=== PATIENT | female | born 1985 | race Caucasian/White ===

== ENCOUNTER 2016-10-12 12:07 | Day surgery (SDC) | payer OTHER ==
[2016-10-12] VITALS (16 sets, daily range): BP systolic 103–120; BP diastolic 55–66; PULSE 81–98; RESP 13–22; Ht 165.1 cm; Wt 75.6 kg
[~2016-10-12] VITALS: Ht 165.1 cm; Wt 75.6 kg
[2016-10-12 13:53] LABS: ADD UMIC YES; URINE BILIRUBIN (Dip) NEGATIVE (NEGATIVE); URINE BLOOD (Dip) 2+ (NEGATIVE); URINE COLOR LT. YELLOW (YELLOW); URINE GLUCOSE (Dip) NEGATIVE (NEGATIVE); URINE KETONES (Dip) NEGATIVE (NEGATIVE); URINE LEUKOCYTE ESTERASE (Dip) 2+ (NEGATIVE); URINE NITRITE (Dip) NEGATIVE (NEGATIVE); URINE TOTAL PROTEIN (Dip) NEGATIVE (NEGATIVE); URINE UROBILINOGEN (Dip) 0.2 E.U./dL (0.1-1.0)
[2016-10-12 13:53] LABS: BASOPHILS % 0.5 % (0.0-2.0); EOSINOPHILS # 0.1 10^3/ul (0.0-0.5); EOSINOPHILS % 1.2 % (0.0-7.0); HEMATOCRIT 40.7 % (37.0-47.0); HEMOGLOBIN 13.6 g/dl (12.0-16.0); LYMPHOCYTES # 2.1 10^3/ul (0.8-2.9); MEAN CORPUSCULAR HEMOGLOBIN 30.5 pg (29.0-33.0); MEAN CORPUSCULAR HGB CONC 33.4 g/dl (32.0-37.0); MEAN CORPUSCULAR VOLUME 91.4 fl (82.0-101.0); MEAN PLATELET VOLUME 9.7 fl (7.4-10.4); MONOCYTE # 0.7 10^3/ul (0.3-0.9); MONOCYTES % 6.9 % (0.0-11.0); NEUTROPHIL # 6.8 10^3/ul (1.6-7.5); NEUTROPHILS % 69.4 % (39.0-77.0); PLATELET COUNT 195 10^3/UL (140-440); RED BLOOD COUNT 4.45 10^6/ul (4.20-5.40); RED CELL DISTRIBUTION WIDTH 12.7 % (11.5-14.5); UNCORRECTED WBC 9.8 10^3/ul (4.8-10.8); WHITE BLOOD COUNT 9.8 10^3/ul (4.8-10.8)
[2016-10-12 14:01] LABS: INR 1.1; PROTIME 14.2 Sec (12.2-14.2); PT RATIO 1.1
[2016-10-12 14:02] LABS: PARTIAL THROMBOPLASTIN TIME 27.4 Sec (25.0-35.0)
[2016-10-12 14:03] LABS: SQUAMOUS EPITHELIAL CELL,UR FEW; URINE RBCS 0-2 /HPF (0)
[2016-10-12 14:05] LABS: CONDITION 1
[2016-10-12 15:25] LABS: ALBUMIN 3.9 g/dl (3.3-4.9)
[2016-10-12 15:28] LABS: ALBUMIN/GLOBULIN RATIO 1.21; BILIRUBIN,INDIRECT 0.3 mg/dl (0-1.1); BILIRUBIN,TOTAL 0.3 mg/dl (0.2-1.3); TOTAL PROTEIN 7.1 g/dl (6.1-8.1)
[2016-10-12 15:32] LABS: CALCIUM 9.3 mg/dl (8.4-10.2); CREATININE 0.5 mg/dl (0.44-1.00); POTASSIUM 3.7 mmol/L (3.5-5.1)
[2016-10-12] MEDS ORDERED: ACETAMINOPHEN 650 MG SUPP PR ONE (17:30)
[2016-10-12] MEDS ORDERED: DEXTROSE 5%-LR 1,000 ML IV ONE (17:30)
[2016-10-12] MEDS ORDERED: SUMATRIPTAN 6 MG/0.5 ML INJ SC SCH (18:36)
[2016-10-12] MEDS ORDERED: FENTAnyl 50 MCG/ML VIAL ONE (22:09)
[2016-10-12] MEDS ORDERED: OXYTOCIN 10 UNIT INJ ONE (22:45)
[2016-10-12] MEDS ORDERED: LIDOCAINE 2% (SDV) 5 ML INJ ONE (22:56)
[2016-10-12] MEDS ORDERED: CEFAZOLIN 1 GM INJ ONE (22:57)
[2016-10-12] MEDS ORDERED: SUCCINYLCHOLINE CHLORIDE 100 MG/5 ML SYG IV ONE (22:57)
[2016-10-12] MEDS ORDERED: PROPOFOL 40 ML ONE (22:57)
--- NOTE | 2016-10-12 22:59 | PD.PPDC ---
SR. PAYROLL PROCESSOR Discharge Instruction Diagnosis Final Diagnosis: missed Condition Patient Condition: Stable Diet Diet: Resume Regular Diet Activity/Restrictions Activity: May Shower Restrictions: No Sexual Activity Nothing in the Vagina No [place]agon No Tampons, douche Follow-up Follow-up with Physician: 2, Week/Weeks Return to clinic for NUTRITION SERVICES ASSISTANT Instructions: Fever greater than 101 Chills Worsening abdominal pain Excessive Vaginal Bleeding More than 2 pads per hour Unable to tolerate diet OB Instructions: Breast Tenderness LICO BELLO MD Oct 12, 2016 22:59
[2016-10-12] MEDS ORDERED: FENTAnyl 50 MCG/ML VIAL IV PRN ×2 (23:00)
[2016-10-12] MEDS ORDERED: HYDROmorphONE (0.2 MG/ML) 10ML SYG IV PRN ×3 (23:00)
[2016-10-12] MEDS ORDERED: ONDANSETRON 4 MG INJ IV PRN (23:00)
[2016-10-12] MEDS ORDERED: METOCLOPRAMIDE 10 MG INJ IV PRN (23:00)
[2016-10-12] MEDS ORDERED: MEPERIDINE 25 MG INJ IV PRN (23:00)
[2016-10-12] MEDS ORDERED: DIPHENHYDRAMINE 50 MG INJ IV PRN (23:00)
[2016-10-12] MEDS ORDERED: MEPERIDINE 25 MG INJ ONE (23:00)
--- NOTE | 2016-10-12 23:39 | OPR ---
DATE OF OPERATION: 10/12/2016 PREOPERATIVE DIAGNOSIS: Missed . POSTOPERATIVE DIAGNOSIS: Missed . See pathological report. OPERATION PERFORMED: Suction curettage. ANESTHESIA: General. ANESTHESIOLOGIST: Dr. Kobe Barrios. SURGEON: Chelsey Rolon MD ESTIMATED BLOOD LOSS: Approximately 50 mL. SPECIMEN: Sent in the normal saline bottle, sterile, for the tissue culture for chromosome analysis . PROCEDURE: Under appropriate induction of general anesthesia, the patient was placed in dorsal lith otomy position. Perineal area and vagina wall were prepped and draped in usual aseptic manner. On inspection, external genitalia revealed no gross abnormality. Bimanual examination, uterus was appr oximately 9 weeks of gestational size, soft in consistency, freely mobile. There was no palpable ad nexal pathology. Weighted speculum was introduced and the cervix was identified, which appeared to be nulliparous and clear. Anterior lip of the cervix was grasped with a single tooth tenaculum. Ca vity was sounded, which was 9 cm in depth and os dilated gradually a #9 Rhianna dilator and this was followed by a size 8 suction curette, which was inserted and which was connected to suction pow er and the entire cavity was suctioned. In the middle of the suction, the tissue was obtained betwe en the suction curet and unpowered and the tissue was obtained, which was placed in the normal salin e and for the tissue culture for chromosome analysis. The procedure was continued, followed by sharp curettage and then followed by suction curettage again until the confirmation of emptiness of the uterine cavity. Ten units of Pitocin was given through IV infusion and prior to surgery 2 gr ams of Ancef was given. Prior to procedure, the bladder was emptied with the [place] catheter. Pr ocedure was completed. Reexamined the uterus, which was formed and small. No significant bleeding noted. All the instruments were removed from the operative field. Sponge count taken, which was co rrect. The patient sent to recovery room in stable condition. Dictated By: CHELSEY NANCE/FROYLAN Conf#: [id number] DID#: [id number]
[2016-10-13 00:22] VITALS: BP 120/55; PULSE 86; RESP 16
== END 2016-10-13 00:25 | disposition home or self-care (01) ==
LOC: SDS 12:07
PROVIDERS: ATTEND Obstetrics & Gynecology
DX: O02.1 Missed abortion (principal)
CPT/HCPCS: 59820; 80053; 81001; 84703; 85025; 85610; 85730; 86850; 86900; 86901; 88305; J0690; J2175; J2405; J3010; J3030; J7121; Z7512; Z7610; 81003; J0330; J2590